=== PATIENT | female | born 1990 | race Caucasian/White ===

== ENCOUNTER 2018-03-23 09:23 | Emergency (ER) | payer MEDICAID, OTHER ==
[2018-03-23 09:24] VITALS: BMI 26.1
[2018-03-23 09:46] VITALS: RESP 18; TEMP 97.7; O2SAT 99
--- NOTE | 2018-03-23 09:46 | ED PDOC ---
Arrival/HPI - General Time Seen by Provider: 03/23/18 09:25 Historian: Patient - History of Present Illness Narrative History of Present Illness (Text): 03/23/18 10:13 27 year old female, with no significant past medical history, who presents to the emergency department complaining of vaginal discharge for the past 3 weeks. She is also experiencing dysuria. Patient states her LNMP was mid to last month. She reports she had her IUD taken out on 02/28/18, has been on control, and has not yet had period since. Ever since the removal of the IUD she has been experiencing vaginal discharge. She went to the the [facility] last week and was diagnosed with BV, given flagyl, which she took, but caused her irritation. Patient notes she went and got an over the counter yeast infection which she applies topically to her labia, which caused inflammation. Patient has been taking Benadryl with no relief, is still experiencing vaginal problems and comes to the emergency department for further evaluation. She believes she was exposed to an STD because a sexual partner told her he had one a few months ago. When she went to [facility] she was told by the PA that she would be treated for the STD, but then states that the PA changed her mind because she had ruled out a STD. She denies joint pain, rashes fevers, chills, headache, dizziness, chest pain, shortness of breath, dyspnea on exertion, cough, abdominal pain, nausea, vomiting, diarrhea, back pain, neck pain, or any other complaint. Time/Duration: < month Symptom Onset: Gradual Symptom Course: Unchanged Activities at Onset: Light Context: Home Past Medical History - Provider Review Nursing Documentation Reviewed: Yes - Infectious Disease Hx of Infectious Diseases: None - Reproductive Currently : No - Hematological/Oncological Hx Anemia: Yes - Psychiatric Hx Substance Use: No - Anesthesia Hx Anesthesia: No - Suicidal Assessment Feels Threatened In Home Enviroment: No Family/Social History - Physician Review Nursing Documentation Reviewed: Yes Family/Social History: No Known Family HX Smoking Status: Never Smoked Hx Alcohol Use: No Hx Substance Use: No Allergies/Home Meds Allergies/Adverse Reactions: Allergies No Known Allergies Allergy (Verified 01/11/15 15:25) Review of Systems - Physician Review All systems were reviewed & negative as marked: Yes - Review of Systems Constitutional: absent: Fevers Respiratory: absent: SOB, Cough Cardiovascular: absent: Chest Pain Gastrointestinal: absent: Abdominal Pain, Diarrhea, Nausea, Vomiting Genitourinary Female: Dysuria Musculoskeletal: absent: Back Pain, Neck Pain, Joint Swelling, Myalgias Skin: absent: Rash Neurological: absent: Headache, Dizziness Physical Exam Vital Signs Reviewed: Yes Vital Signs Temp Pulse Resp BP Pulse Ox 03/23/18 09:24 97.7 F 98 H 18 134/81 99 Temperature: Afebrile Blood Pressure: Normal Pulse: Tachycardic Respiratory Rate: Normal Appearance: Positive for: Well-Appearing, Non-Toxic, Comfortable Pain Distress: None Mental Status: Positive for: Alert and Oriented X 3 - Systems Exam Head: Present: Atraumatic, Normocephalic Pupils: Present: PERRL Extroacular Muscles: Present: EOMI Conjunctiva: Present: Normal Mouth: Present: Moist Mucous Membranes Neck: Present: Normal Range of Motion Respiratory/Chest: Present: Clear to Auscultation, Good Air Exchange. No: Respiratory Distress, Accessory Muscle Use Cardiovascular: Present: Regular Rate and Rhythm, Normal S1, S2. No: Murmurs Abdomen: No: Tenderness, Distention, Peritoneal Signs Genitourinary/Pelvic Exam: Present: Other (labia is very abbarated and erythematous, no pustulence or vesicles visualized, exam limited because patient refused speculum and bimanual exam) Back: Present: Normal Inspection Upper Extremity: Present: Normal Inspection. No: Cyanosis, Edema Lower Extremity: Present: Normal Inspection. No: Edema Neurological: Present: GCS=15, CN II-XII Intact, Speech Normal Skin: Present: Warm, Dry, Normal Color. No: Rashes Psychiatric: Present: Alert, Oriented x 3, Normal Insight, Normal Concentration Medical Decision Making ED Course and Treatment: 03/23/18 09:46 Impression: 27 year old female who presents to the emergency department complaining of vaginal discharge. Plan: -- Labs -- Urinalysis -- POC urine test -- Reassess and disposition Prior Visits: Notes and results from previous visits were reviewed. Progress Notes: 03/23/18 10:44 Patient is refusing a speculum exam and a bimanual exam. - Lab Interpretations I have reviewed the lab results: Yes - Scribe Statement The provider has reviewed the documentation as recorded by the Nima Singleton Provider Scribe Attestation: All medical record entries made by the Nima were at my direction and personally dictated by me. I have reviewed the chart and agree that the record accurately reflects my personal performance of the history, physical exam, medical decision making, and the department course for this patient. I have also personally directed, reviewed, and agree with the discharge instructions and disposition. Disposition/Present on Arrival - Present on Arrival Any Indicators Present on Arrival: No History of DVT/PE: No History of Uncontrolled Diabetes: No Urinary Catheter: No History of Decub. Ulcer: No History Surgical Site Infection Following: None - Disposition Have Diagnosis and Disposition been Completed?: Yes Diagnosis: Vaginal discharge, UTI (urinary tract infection), Vaginal irritation Disposition: HOME/ ROUTINE Disposition Time: 11:14 Patient Plan: Discharge Condition: STABLE Discharge Instructions (ExitCare): Urinary Tract Infection, Adult (DC), Vaginal Discharge in Adults Additional Instructions: GUERLINE JAQUEZ, thank you for letting us take care of you today. Your provider w as Anna Balderrama MD and you were treated for female GEN. ( vaginal pain). The emergency medical care you received today was directed at your acute symptoms. If you were prescribed any medication, please fill it and take as directed. It may take several days for your symptoms to resolve. Return to the Emergency Department if your symptoms worsen, do not improve, or if you have any other problems. Please contact your gauge operator in 1-2 days for a follow up appointment. Bring any paperwork you were given at discharge with you along with any medications you are taking to your follow up visit. Our treatment cannot replace ongoing medical care by a primary care provider outside of the emergency department. Thank you for allowing the [facility] team to be part of your care today. If you had an X-Ray or CT scan: A Radiologist will review the ED reading if any change in treatment is needed we will contact you. If you had a blood, urine, or wound culture: It will take several days for the results, if any change in treatment is needed we will contact you. If you had an STI test: It will take 48 hours for the results. Please call after 1 week if you have not heard back. Prescriptions: Cephalexin [cephalexin] 250 mg PO QID #28 cap Forms: Violet Grey ([place])
[2018-03-23 10:51] VITALS: BP 132/78; PULSE 89
[2018-03-23 10:54] LABS: PH,URINE 5.5 (4.7-8.0); URINE BILIRUBIN NEGATIVE (NEGATIVE); URINE BLOOD LARGE (NEGATIVE); URINE GLUCOSE (UA) NEGATIVE (NEGATIVE); URINE LEUKOCYTE ESTERASE LARGE Leu/uL (NEGATIVE); URINE PROTEIN TRACE mg/dL (<30 mg/dL); URINE UROBILINOGEN 0.2 E.U./dL (<1 E.U./dL)
[2018-03-23 10:56] LABS: URINE APPEARANCE CLEAR (CLEAR); URINE COLOR YELLOW (YELLOW)
[2018-03-23 11:07] LABS: URINE BACTERIA MANY /hpf; URINE RBC 25 - 30 /hpf (0-2); URINE WBC 25 - 30 /hpf (0-6)
[2018-03-23] MEDS ORDERED: cefTRIAXone (Rocephin) 250 mg Inj IM STA (11:11)
== END 2018-03-23 11:39 | disposition home or self-care (01) ==
LOC: ED 09:23
DX: N39.0 Urinary tract infection, site not specified (principal); N89.8 Other specified noninflammatory disorders of vagina
CPT/HCPCS: 81001; 81025; 87086; 87491; 87591; 96372; 99283; J0696